=== PATIENT | female | born 1950 | race Hispanic/Latino ===

== ENCOUNTER 2018-06-13 23:48 | Emergency (ER) | payer OTHER ==
[2018-06-14 00:21] LABS: BASOPHILS % (AUTO) 0.8 % (0.0-5.0); EOSINOPHILS % (AUTO) 1.2 % (0.0-8.0); HEMATOCRIT 36.3 % (36-48); LYMPHOCYTES % (AUTO) 32.8 % (21.0-51.0); MEAN CORPUSCULAR HEMOGLOBIN 29.2 pg (27.0-33.0); MEAN CORPUSCULAR HGB CONC 34.5 g/dL (32.0-36.0); MEAN CORPUSCULAR VOLUME 84.8 fL (79-99); MONOCYTES % (AUTO) 6.6 % (3.0-13.0); NEUTROPHILS % (AUTO) 58.6 % (40.0-77.0); PLATELET COUNT (AUTO) 237 K/uL (130-400); RED BLOOD CELL COUNT(AUTO) 4.28 MIL/uL (4.00-5.50); RED CELL DISTRIBUTION WIDTH 14.2 % (11.0-15.5); WHITE BLOOD COUNT (AUTO) 9.2 K/uL (4.8-10.8)
[2018-06-14 00:32] LABS: APPEARANCE,URINE Clear (CLEAR); BILIRUBIN,URINE Negative (NEGATIVE); COLOR,URINE Yellow (YELLOW); GLUCOSE, URINE (UA) Negative (NEGATIVE); KETONES,URINE Negative (NEGATIVE); LEUKOCYTE ESTERASE ,URINE Trace (NEGATIVE); NITRATE,URINE Negative (NEGATIVE); OCCULT BLOOD,URINE Negative (NEGATIVE); PROTEIN,URINE Negative (NEGATIVE); UROBILINOGEN,URINE 0.2 mg/dL (0.2-1.0)
[2018-06-14 00:34] LABS: POTASSIUM 4.1 mmol/L (3.5-5.1)
[2018-06-14 00:39] LABS: ALBUMIN 3.8 g/dL (3.5-5.0); BILIRUBIN,TOTAL 0.9 mg/dL (0.2-1.0); TOTAL PROTEIN, SERUM 7.4 g/dL (6.0-8.3)
[2018-06-14 01:05] LABS: BACTERIA,URINE Rare /HPF (None Seen); RBC,URINE None Seen /HPF (0-1); WBC,URINE 0-1 /HPF (0-1)
[2018-06-14] MEDS ORDERED: MECLIZINE HCL 25 MG TABLET ONE (02:19)
== END 2018-06-14 05:12 | disposition home or self-care (01) ==
LOC: EDH 23:48
DX: E87.1 Hypo-osmolality and hyponatremia (principal); I10 Essential (primary) hypertension; H93.19 Tinnitus, unspecified ear
CPT/HCPCS: 36415; 70450; 71045; 80053; 81001; 82550; 84484; 85025; 93005; 96360; 96361

== ENCOUNTER 2018-08-09 23:56 | Emergency (ER) | payer OTHER ==
[2018-08-10 00:45] LABS: BASOPHILS % (AUTO) 0.6 % (0.0-5.0); EOSINOPHILS % (AUTO) 1.1 % (0.0-8.0); LYMPHOCYTES % (AUTO) 24.5 % (21.0-51.0); MEAN CORPUSCULAR HEMOGLOBIN 28.5 pg (27.0-33.0); MEAN CORPUSCULAR VOLUME 86.5 fL (79-99); MONOCYTES % (AUTO) 6.9 % (3.0-13.0); NEUTROPHILS % (AUTO) 66.9 % (40.0-77.0); NUCLEATED RED BLOOD CELLS 0.1 % (0.0-0.19); PLATELET COUNT (AUTO) 250 K/uL (130-400); RED CELL DISTRIBUTION WIDTH 13.6 % (11.0-15.5); WHITE BLOOD COUNT (AUTO) 5.7 K/uL (4.8-10.8)
[2018-08-10 00:47] LABS: CREATININE 0.8 mg/dL (0.5-1.5); POTASSIUM 4.2 mmol/L (3.5-5.1)
[2018-08-10] MEDS ORDERED: ONDANSETRON HCL 4 MG/2 ML VIAL ONE (00:48)
[2018-08-10] MEDS ORDERED: SODIUM CHLORIDE 0.9% 500ML 500 ML IV ONE (00:48)
[2018-08-10 00:50] LABS: INR 0.96 (0.85-1.15); PARTIAL THROMBOPLASTIN TIME 28.6 SEC (26.3-35.5); PROTHROMBIN TIME 10.1 SEC (9.6-11.6)
[2018-08-10 00:52] LABS: ALBUMIN 3.8 g/dL (3.5-5.0); BILIRUBIN,TOTAL 0.3 mg/dL (0.2-1.0); TOTAL PROTEIN, SERUM 7.7 g/dL (6.0-8.3)
[2018-08-10 00:54] LABS: APPEARANCE,URINE Clear (CLEAR); BILIRUBIN,URINE Negative (NEGATIVE); COLOR,URINE Yellow (YELLOW); GLUCOSE, URINE (UA) 250 mg/dL (NEGATIVE); KETONES,URINE Negative (NEGATIVE); LEUKOCYTE ESTERASE ,URINE Negative (NEGATIVE); NITRATE,URINE Negative (NEGATIVE); OCCULT BLOOD,URINE Negative (NEGATIVE); PH,URINE 7.5 (5.0-8.0); PROTEIN,URINE Negative (NEGATIVE); UROBILINOGEN,URINE 0.2 mg/dL (0.2-1.0)
[2018-08-10 01:02] LABS: BACTERIA,URINE Rare /HPF (None Seen); RBC,URINE 0-1 /HPF (0-1); WBC,URINE None Seen /HPF (0-1)
[2018-08-10 01:02] LABS: B-TYPE NATRIURETIC PEPTIDE 38 pg/mL (0-100)
== END 2018-08-10 03:42 | disposition home or self-care (01) ==
LOC: EDH 23:56
DX: J06.9 Acute upper respiratory infection, unspecified (principal); E86.9 Volume depletion, unspecified; I10 Essential (primary) hypertension; E11.40 Type 2 diabetes mellitus with diabetic neuropathy, unspecified; E78.5 Hyperlipidemia, unspecified; E07.9 Disorder of thyroid, unspecified; Z88.6 Allergy status to analgesic agent; Z90.710 Acquired absence of both cervix and uterus
CPT/HCPCS: 36415; 70450; 71045; 80053; 81001; 83880; 84484; 85025; 85610; 85730; 93005; 96361; 96374; 99284; J2405; J7040

== ENCOUNTER 2018-10-30 03:03 | Emergency (ER) | payer OTHER ==
[2018-10-30] MEDS ORDERED: ONDANSETRON HCL 4 MG/2 ML VIAL ONE (03:54)
[2018-10-30] MEDS ORDERED: MORPHINE SULFATE 4 MG/1ML SYG ONE (03:54)
[2018-10-30 03:59] LABS: BASOPHILS % (AUTO) 0.2 % (0.0-5.0); EOSINOPHILS % (AUTO) 0.4 % (0.0-8.0); HEMATOCRIT 40.4 % (36-48); LYMPHOCYTES % (AUTO) 14.2 % (21.0-51.0); MEAN CORPUSCULAR HEMOGLOBIN 28.5 pg (27.0-33.0); MEAN CORPUSCULAR HGB CONC 32.7 g/dL (32.0-36.0); MEAN CORPUSCULAR VOLUME 87.2 fL (79-99); MONOCYTES % (AUTO) 6.8 % (3.0-13.0); NEUTROPHILS % (AUTO) 78.4 % (40.0-77.0); NUCLEATED RED BLOOD CELLS 0.1 % (0.0-0.19); PLATELET COUNT (AUTO) 244 K/uL (130-400); RED BLOOD CELL COUNT(AUTO) 4.64 MIL/uL (4.00-5.50); RED CELL DISTRIBUTION WIDTH 13.5 % (11.0-15.5); WHITE BLOOD COUNT (AUTO) 4.2 K/uL (4.8-10.8)
[2018-10-30 04:13] LABS: CREATININE 0.7 mg/dL (0.5-1.5); POTASSIUM 4.7 mmol/L (3.5-5.1)
[2018-10-30] MEDS ORDERED: 0.9% SODIUM CHLORIDE 1000 ML IV BAG IV ONE (04:13)
[2018-10-30 04:17] LABS: BILIRUBIN,TOTAL 0.4 mg/dL (0.2-1.0); TOTAL PROTEIN, SERUM 7.9 g/dL (6.0-8.3)
[2018-10-30 04:17] LABS: APPEARANCE,URINE Clear (CLEAR); BILIRUBIN,URINE Negative (NEGATIVE); COLOR,URINE Yellow (YELLOW); GLUCOSE, URINE (UA) Negative (NEGATIVE); KETONES,URINE Negative (NEGATIVE); LEUKOCYTE ESTERASE ,URINE Moderate (NEGATIVE); NITRATE,URINE Negative (NEGATIVE); OCCULT BLOOD,URINE Negative (NEGATIVE); PROTEIN,URINE POS 1+ mg/dL (NEGATIVE); UROBILINOGEN,URINE 0.2 mg/dL (0.2-1.0)
[2018-10-30 04:24] LABS: BACTERIA,URINE Few /HPF (None Seen); MUCUS,URINE Moderate LPF (None Seen); RBC,URINE 0-1 /HPF (0-1); SQUAMOUS EPITHELIAL CELL,UR Moderate /HPF (0-2)
[2018-10-30] MEDS ORDERED: IOHEXOL-350 75 ML VIAL IV ONE (04:40)
[2018-10-30] MEDS ORDERED: DiphenhydrAMINE HCL 50 MG/ML VIAL ONE (05:09)
[2018-10-30] MEDS ORDERED: CEFTRIAXONE SODIUM 1 GM ONE (05:44)
[2018-10-30] MEDS ORDERED: FAMOTIDINE/PF 20 MG/2 ML VIAL IV ONE (05:46)
== END 2018-10-30 06:17 | disposition home or self-care (01) ==
LOC: EDH 03:03
DX: N39.0 Urinary tract infection, site not specified (principal); R11.2 Nausea with vomiting, unspecified; R19.7 Diarrhea, unspecified; T48.4X5A Adverse effect of expectorants, initial encounter; I10 Essential (primary) hypertension; E78.5 Hyperlipidemia, unspecified; E11.40 Type 2 diabetes mellitus with diabetic neuropathy, unspecified; E07.9 Disorder of thyroid, unspecified; Z90.710 Acquired absence of both cervix and uterus; Z88.6 Allergy status to analgesic agent; Y92.89 Other specified places as the place of occurrence of the external cause
CPT/HCPCS: 36415; 74177; 80053; 81001; 83690; 84484; 85025; 93005; 96361; 96374; 96375; 99284; J0696; J1200; J2270; J2405; J3490; J7030; Q9967

== ENCOUNTER 2019-03-19 15:35 | Emergency (ER) | payer OTHER ==
[2019-03-19] MEDS ORDERED: HYDROCODONE/ACETAMINOPHEN 5/325 MG TAB ONE (15:52)
== END 2019-03-19 17:40 | disposition home or self-care (01) ==
LOC: EDH 15:35
DX: M25.562 Pain in left knee (principal); E78.5 Hyperlipidemia, unspecified; I10 Essential (primary) hypertension; E11.40 Type 2 diabetes mellitus with diabetic neuropathy, unspecified; E07.9 Disorder of thyroid, unspecified; Z88.6 Allergy status to analgesic agent
CPT/HCPCS: 73562

== ENCOUNTER → 2020-05-03 | Outpatient (CLI) | payer OTHER | END | disposition home or self-care (01) | LOC: SHCH 09:13 | PROVIDERS: ATTEND Internal Medicine Cardiovascular Disease | DX: I87.2 Venous insufficiency (chronic) (peripheral) (principal); R07.9 Chest pain, unspecified | CPT/HCPCS: 93306; 93356; 93970 ==

== ENCOUNTER → 2020-05-05 | Outpatient (CLI) | payer OTHER ==
[~2020-05-05] MED LIST: REGADENOSON 0.4 MG/5 ML PF SYG IVP SCH
== END | disposition home or self-care (01) ==
LOC: SHCH 08:06
PROVIDERS: ATTEND Internal Medicine Cardiovascular Disease
DX: R07.9 Chest pain, unspecified (principal); R06.09 Other forms of dyspnea
CPT/HCPCS: 78452; 93017; 96374; A9500 ×2; J2785

== ENCOUNTER 2020-06-01 06:15 | Observation (INO) | payer OTHER ==
[2020-05-29 08:45] LABS: BASOPHILS % (AUTO) 0.6 % (0.0-5.0); EOSINOPHILS % (AUTO) 2.1 % (0.0-8.0); HEMATOCRIT 37.9 % (36-48); LYMPHOCYTES % (AUTO) 29.9 % (21.0-51.0); MEAN CORPUSCULAR HEMOGLOBIN 26.8 pg (27.0-33.0); MEAN CORPUSCULAR HGB CONC 31.7 g/dL (32.0-36.0); MEAN CORPUSCULAR VOLUME 84.6 fL (79-99); MONOCYTES % (AUTO) 9.2 % (3.0-13.0); NEUTROPHILS % (AUTO) 57.9 % (40.0-77.0); PLATELET COUNT (AUTO) 251 K/uL (130-400); RED BLOOD CELL COUNT(AUTO) 4.48 MIL/uL (4.00-5.50); RED CELL DISTRIBUTION WIDTH 14.1 % (11.0-15.5); WHITE BLOOD COUNT (AUTO) 6.2 K/uL (4.8-10.8)
[2020-05-29 08:47] LABS: APPEARANCE,URINE Clear (CLEAR); BILIRUBIN,URINE Negative (NEGATIVE); COLOR,URINE Yellow (YELLOW); GLUCOSE, URINE (UA) >=1000 mg/dL (NEGATIVE); KETONES,URINE Negative (NEGATIVE); LEUKOCYTE ESTERASE ,URINE Trace (NEGATIVE); NITRATE,URINE Negative (NEGATIVE); OCCULT BLOOD,URINE Negative (NEGATIVE); PROTEIN,URINE Negative (NEGATIVE); UROBILINOGEN,URINE 0.2 mg/dL (0.2-1.0)
[2020-05-29 08:53] LABS: CREATININE 0.8 mg/dL (0.5-1.5); POTASSIUM 4.6 mmol/L (3.5-5.1)
[2020-05-29 08:55] LABS: INR 0.92 (0.85-1.15); PARTIAL THROMBOPLASTIN TIME 27.4 SEC (26.3-35.5)
[2020-05-29 09:03] LABS: BACTERIA,URINE Rare /HPF (None Seen); RBC,URINE None Seen /HPF (0-1)
[2020-05-31 10:04] VITALS: BP 187/96
[~2020-06-01] VITALS: Ht 152.4 cm; Wt 71.7 kg
[2020-06-01] VITALS (24 sets, daily range): BP systolic 109–175; BP diastolic 52–122
[~2020-06-01 06:15] MED LIST changes: +AEC81 PO; +ATOR40TA71 PO; +B-12 PO; +EMPA25TA PO; +GABA-529 PO; +LEVO175T9 PO; +LOSA50TA64 PO; +MELO-108 PO; +MEMA5TAB42 PO; +METF-446 PO; +METO50TA18 PO; +OMEGA-3 PO; -REGADENOSON 0.4 MG/5 ML PF SYG IVP SCH; +VIT D PO
[2020-06-01] MEDS ORDERED: SODIUM CHLORIDE 0.9% 1000ML 1,000 ML IV ONE (06:22)
[2020-06-01] MEDS ORDERED: BIVALIRUDIN 250 MG/VIAL IV ONE (07:24)
[2020-06-01] MEDS ORDERED: LIDOCAINE HCL 2% 20ML ONE (07:24)
[2020-06-01] MEDS ORDERED: IOHEXOL 350 MG/ML 100ML INFUS..BTL IV ONE (07:24)
[2020-06-01] MEDS ORDERED: IOHEXOL-350 50ML VIAL IV ONE ×2 (07:24→08:05)
[2020-06-01] MEDS ORDERED: NITROGLYCERIN 2 MG/VIAL VIAL IV ONE (07:24)
[2020-06-01] MEDS ORDERED: IOHEXOL-350 75 ML VIAL IV ONE (07:24)
[2020-06-01] MEDS ORDERED: FENTANYL CITRATE PF 50 MCG/1 ML 2ML VIAL ONE (07:45)
[2020-06-01] MEDS ORDERED: MIDAZOLAM HCL 1 MG/ML 2ML VIAL ONE (07:45)
[2020-06-01] MEDS ORDERED: TICAGRELOR 90 MG TABLET ONE (08:57)
[2020-06-01] MEDS ORDERED: NITROGLYCERIN 0.4 MG SL TAB SL PRN (09:15)
[2020-06-01] MEDS ORDERED: DEXTROSE 50%-WATER 50 ML DISP.SYRIN IV PRN (09:15)
[2020-06-01] MEDS ORDERED: SODIUM CHLORIDE 0.9% 1000ML 1,000 ML IV SCH (09:15)
[2020-06-01] MEDS ORDERED: METOPROLOL TARTRATE 1 MG/ML 5ML VIAL IV PRN (09:15)
[2020-06-01] MEDS ORDERED: GLUCAGON 1MG KIT 1 MG ML IM PRN (09:15)
[2020-06-01] MEDS ORDERED: ATROPINE SULFATE 0.1 MG/ML 10 ML SYG IVP ONE (09:19)
[2020-06-01] MEDS: HYDRALAZINE HCL 20 MG/ML VIAL IV PRN ×2 (10:16→16:59)
[2020-06-01] MEDS: INSULIN HUMULIN R 100 UNIT/ML 3ML SQ SCH ×3 (11:30→20:15)
[2020-06-01] MEDS: TICAGRELOR 90 MG TABLET PO SCH (19:41)
[2020-06-01] MEDS: METOPROLOL TARTRATE 50 MG TAB PO SCH (19:41)
[2020-06-01] MEDS ORDERED: NON-FORMULARY MEDICATION 1 EACH (Empagliflozin (Jardiance) 25 MG) PO SCH (21:00)
[2020-06-02 04:13] VITALS: BP 142/77
[2020-06-02] MEDS: INSULIN HUMULIN R 100 UNIT/ML 3ML SQ SCH (05:31)
[2020-06-02] MEDS ORDERED: LEVOTHYROXINE 88 MCG TABLET PO SCH (06:30)
[2020-06-02] MEDS: METOPROLOL TARTRATE 50 MG TAB PO SCH (08:23)
[2020-06-02] MEDS: TICAGRELOR 90 MG TABLET PO SCH (08:23)
[2020-06-02 08:50] VITALS: BP 126/70
[2020-06-02] MEDS ORDERED: MELOXICAM 7.5 MG TABLET PO SCH (09:00)
[2020-06-02] MEDS ORDERED: NON-FORMULARY MEDICATION 1 EACH (Levothyroxine Sodium 175 MCG) PO SCH (09:00)
[2020-06-02] MEDS ORDERED: ATORVASTATIN CALCIUM 40 MG TABLET PO SCH (09:00)
[2020-06-02] MEDS ORDERED: LOSARTAN 50 MG TABLET PO SCH (09:00)
[2020-06-02] MEDS ORDERED: MEMANTINE HCL 5 MG TABLET PO SCH (09:00)
[2020-06-02] MEDS ORDERED: METFORMIN HCL 500 MG TABLET PO SCH (09:00)
[2020-06-02] MEDS ORDERED: CYANOCOBALAMIN (VITAMIN B-12) 1,000 MCG TABLET PO SCH (09:00)
[2020-06-02] MEDS ORDERED: B12 PO SCH (09:00)
[2020-06-02] MEDS ORDERED: GABAPENTIN 100 MG CAPSULE PO SCH (09:00)
[2020-06-02] MEDS ORDERED: ASPIRIN 81 MG EC TAB PO SCH (09:00)
[2020-06-02] MEDS ORDERED: NON-FORMULARY MEDICATION 1 EACH (Metformin HCl 1,000 MG) PO SCH (09:00)
[2020-06-02] MEDS ORDERED: NON-FORMULARY MEDICATION 1 EACH (Meloxicam 15 MG) PO SCH (09:00)
[2020-06-23] MEDS ORDERED: TICA90TA PO (17:15)
[2020-06-23] MEDS ORDERED: TRAM50TA4 PO (17:15)
== END 2020-06-02 11:00 | disposition home or self-care (01) ==
LOC: DAH 06:15 → INTOOBSV 06:16 → DAH 06:16 → OBSVTOIN 06:16 → DAHIP 06:16 → 4CH 14:04
PROVIDERS: ADMIT Internal Medicine Cardiovascular Disease; ATTEND Internal Medicine Cardiovascular Disease
DX: I25.111 Atherosclerotic heart disease of native coronary artery with angina pectoris with documented spasm (principal); I11.0 Hypertensive heart disease with heart failure; I50.32 Chronic diastolic (congestive) heart failure; E11.51 Type 2 diabetes mellitus with diabetic peripheral angiopathy without gangrene; E78.5 Hyperlipidemia, unspecified; E03.9 Hypothyroidism, unspecified; I87.2 Venous insufficiency (chronic) (peripheral); Z90.710 Acquired absence of both cervix and uterus; Z82.79 Family history of other congenital malformations, deformations and chromosomal abnormalities; Z79.84 Long term (current) use of oral hypoglycemic drugs; Z95.5 Presence of coronary angioplasty implant and graft; Z79.82 Long term (current) use of aspirin; Z79.01 Long term (current) use of anticoagulants; Z79.890 Hormone replacement therapy; Z79.899 Other long term (current) drug therapy
CPT/HCPCS: 36415; 71045; 80048; 81001; 82948 ×5; 85025; 85610; 85730; 93005; 93458; 96361 ×2; 96374; A4215; A4216; A4221; A4222; A4223 ×3; A4606; A4615; A4663; A6260; A6402; C1725; C1769 ×2; C1874; C1887 ×2; C1894 ×2; C9600; G0378 ×19; J0360; J0583; J1644; J2250; J3010; J3490 ×2; J7030; Q9965; Q9967 ×3; 99156; 99157; J0461

== ENCOUNTER 2020-06-26 06:00 | Observation (INO) | payer OTHER ==
[2020-06-23 14:39] LABS: BASOPHILS % (AUTO) 0.5 % (0.0-5.0); EOSINOPHILS % (AUTO) 1.3 % (0.0-8.0); HEMATOCRIT 36.7 % (36-48); MEAN CORPUSCULAR HEMOGLOBIN 27.5 pg (27.0-33.0); MEAN CORPUSCULAR HGB CONC 32.4 g/dL (32.0-36.0); MEAN CORPUSCULAR VOLUME 84.8 fL (79-99); MONOCYTES % (AUTO) 8.5 % (3.0-13.0); NEUTROPHILS % (AUTO) 67.4 % (40.0-77.0); PLATELET COUNT (AUTO) 253 K/uL (130-400); RED BLOOD CELL COUNT(AUTO) 4.33 MIL/uL (4.00-5.50); RED CELL DISTRIBUTION WIDTH 14.1 % (11.0-15.5); WHITE BLOOD COUNT (AUTO) 6.2 K/uL (4.8-10.8)
[2020-06-23 14:49] LABS: CREATININE 0.7 mg/dL (0.5-1.5); POTASSIUM 4.3 mmol/L (3.5-5.1)
[2020-06-23 14:53] LABS: INR 0.93 (0.85-1.15); PARTIAL THROMBOPLASTIN TIME 26.4 SEC (26.3-35.5); PROTHROMBIN TIME 10.1 SEC (9.6-11.6)
[2020-06-23 17:09] VITALS: BP 164/73
[2020-06-26] VITALS (10 sets, daily range): BP systolic 129–169; BP diastolic 55–78
[~2020-06-26] VITALS: Ht 152.4 cm; Wt 69.9 kg
[~2020-06-26 06:00] MED LIST changes: -B-12 PO; -MELO-108 PO; -OMEGA-3 PO; +SODIUM CHLORIDE 0.9% 500ML 500 ML IV SCH; +TICA90TA PO; +TRAM50TA4 PO; -VIT D PO
[2020-06-26] MEDS ORDERED: SODIUM CHLORIDE 0.9% 1000ML 1,000 ML IV ONE (09:21)
[2020-06-26] MEDS ORDERED: NITROGLYCERIN 2 MG/VIAL VIAL IV ONE (09:25)
[2020-06-26] MEDS ORDERED: IOHEXOL 350 MG/ML 100ML INFUS..BTL IV ONE (09:26)
[2020-06-26] MEDS ORDERED: LIDOCAINE HCL 2% 20ML ONE (09:26)
[2020-06-26] MEDS ORDERED: HEPARIN SODIUM 1000UNIT/ML 10ML VIAL ONE (09:30)
[2020-06-26] MEDS ORDERED: BIVALIRUDIN 250 MG/VIAL IV ONE (09:41)
[2020-06-26] MEDS ORDERED: MIDAZOLAM HCL 1 MG/ML 2ML VIAL ONE (09:52)
[2020-06-26] MEDS ORDERED: FENTANYL CITRATE PF 50 MCG/1 ML 2ML VIAL ONE (09:52)
[2020-06-26] MEDS ORDERED: GLUCAGON 1MG KIT 1 MG ML IM PRN (10:45)
[2020-06-26] MEDS ORDERED: SODIUM CHLORIDE 0.9% 1000ML 1,000 ML IV SCH (10:45)
[2020-06-26] MEDS ORDERED: NITROGLYCERIN 0.4 MG SL TAB SL PRN (10:45)
[2020-06-26] MEDS ORDERED: DEXTROSE 50%-WATER 50 ML DISP.SYRIN IV PRN (10:45)
[2020-06-26] MEDS ORDERED: METOPROLOL TARTRATE 1 MG/ML 5ML VIAL IV PRN (10:45)
[2020-06-26] MEDS ORDERED: HYDRALAZINE HCL 20 MG/ML VIAL IV PRN (10:45)
--- NOTE | 2020-06-26 11:15 | NUR ---
ARRIVAL TO FLOOR PT IS AAOX3 DENIES CP DENIES SOB DENIES NV NO COMPLAINTS RESTING IN BED. BREATHING PATTERN IS EVEN AND UNLABORED. NOTED RIGHT FEMORAL SHEATH SUTURED IN PLACE. RIGHT GROIN WNLS. BEDREST IN PROGRESS. TELE PACK APPLIED TO PATIENT.
[2020-06-26] MEDS: INSULIN HUMULIN R 100 UNIT/ML 3ML SQ SCH ×3 (11:30→20:27)
--- NOTE | 2020-06-26 12:30 | NUR ---
LINE REMOVAL SHEATH REMOVED, MANUAL PRESSURE HELD [id number]. DRESSING APPLIED. BEDREST X3 HOURS IN PROGRESS, PATIENT AND FAMILY VERBALIZE UNDERSTANDING. CALL LIGHT WITHIN REACH.
--- NOTE | 2020-06-26 15:30 | NUR ---
RIGHT GROIN WNL HOB UP TO 30 DEGREES, SEATED POSITION. CALL LIGHT WITHIN REACH.
--- NOTE | 2020-06-26 17:30 | NUR ---
STATUS RIGHT GROIN REMAINS WNL.
[2020-06-26] MEDS ORDERED: TICAGRELOR 90 MG TABLET ONE (18:48)
[2020-06-26] MEDS: TICAGRELOR 90 MG TABLET PO SCH (19:53)
[2020-06-27 00:07] VITALS: BP 147/64
[2020-06-27 04:22] VITALS: BP 140/72
[2020-06-27] MEDS: INSULIN HUMULIN R 100 UNIT/ML 3ML SQ SCH (05:31)
[2020-06-27 05:56] LABS: HEMATOCRIT 33.9 % (36-48); MEAN CORPUSCULAR HGB CONC 32.2 g/dL (32.0-36.0); MEAN CORPUSCULAR VOLUME 83.9 fL (79-99); RED BLOOD CELL COUNT(AUTO) 4.04 MIL/uL (4.00-5.50); RED CELL DISTRIBUTION WIDTH 13.8 % (11.0-15.5); WHITE BLOOD COUNT (AUTO) 4.7 K/uL (4.8-10.8)
[2020-06-27 06:10] LABS: CREATININE 0.5 mg/dL (0.5-1.5); POTASSIUM 3.9 mmol/L (3.5-5.1)
[2020-06-27 07:30] VITALS: BP 150/74
[2020-06-27] MEDS: TICAGRELOR 90 MG TABLET PO SCH (09:59)
--- NOTE | 2020-06-27 10:16 | NUR ---
DISCHARGE INSTRUCTION PROVIDED TO PATIENT ALONG WITH LIST OF HOME MEDS ,RISKS TO WATCH OUT FOR , DAUGHTER AT BEDSIDE .. FOLLOW UP APPT SET UP ..
--- NOTE | 2020-06-27 10:19 | NUR ---
PER DAUGHTER ALREADY TOOK MORNING HOME MEDICATION
--- NOTE | 2020-06-27 11:02 | NUR ---
1005 patient signed IM Letter(daughter at bedside), I faxed IM Letter to [phone] and placed in chart under consent tab. Addendum: 06/27/20 at 1105 by JAMES AMOS CM Patient signed GREEN Letter.
--- NOTE | 2020-06-27 13:14 | NUR ---
MED RECORD REVIEWED, NO TRIGGERS, NO CONCERNS EXPRESSED BY PATIENT, DETAILED CM ASSESSMENT DEFERRED Addendum: 06/27/20 at 1315 by KARRIE REBOLLAR RN CM Amended: Links added.
== END 2020-06-27 09:50 | disposition home or self-care (01) ==
LOC: DAH 06:00 → DAHIP 06:01 → DAH 06:01 → 4CH 11:37
PROVIDERS: ADMIT Internal Medicine Cardiovascular Disease; ATTEND Internal Medicine Cardiovascular Disease
DX: I25.119 Atherosclerotic heart disease of native coronary artery with unspecified angina pectoris (principal); E11.51 Type 2 diabetes mellitus with diabetic peripheral angiopathy without gangrene; E78.5 Hyperlipidemia, unspecified; I10 Essential (primary) hypertension; Z87.890 Personal history of sex reassignment
CPT/HCPCS: 36415 ×2; 71045; 80048 ×2; 82948 ×4; 85025; 85027; 85610; 85730; 93005; 96360; 96361; A4215; A4216; A4221; A4222; A4223 ×3; A4606; A4663; C1769; C1874; C1887 ×3; C1894 ×2; C9600; G0378 ×23; J0583; J1644; J2250; J3010; J3490 ×2; J7030; Q9965; Q9967; 93454; 99152; 99156; 99157

== ENCOUNTER → 2020-11-21 | Outpatient (CLI) | payer OTHER ==
[~2020-11-21] MED LIST changes: -SODIUM CHLORIDE 0.9% 500ML 500 ML IV SCH
== END | disposition home or self-care (01) ==
LOC: SHCH 13:41
PROVIDERS: ATTEND Internal Medicine Cardiovascular Disease
DX: I87.2 Venous insufficiency (chronic) (peripheral) (principal)
CPT/HCPCS: 93970

== ENCOUNTER 2021-02-12 17:28 | Emergency (ER) | payer OTHER ==
[~2021-02-12] VITALS: Ht 152.4 cm; Wt 88.5 kg
[2021-02-12 19:53] VITALS: BP 111/58
[2021-02-12 21:25] LABS: BILIRUBIN,URINE Negative (NEGATIVE); COLOR,URINE Yellow (YELLOW); GLUCOSE, URINE (UA) >=1000 mg/dL (NEGATIVE); KETONES,URINE Negative (NEGATIVE); LEUKOCYTE ESTERASE ,URINE Negative (NEGATIVE); NITRATE,URINE Negative (NEGATIVE); OCCULT BLOOD,URINE Negative (NEGATIVE); PROTEIN,URINE Negative (NEGATIVE); UROBILINOGEN,URINE 0.2 mg/dL (0.2-1.0)
[2021-02-12 21:25] LABS: BASOPHILS % (AUTO) 0.4 % (0.0-5.0); EOSINOPHILS % (AUTO) 1.1 % (0.0-8.0); HEMATOCRIT 33.9 % (36-48); LYMPHOCYTES % (AUTO) 18.8 % (21.0-51.0); MEAN CORPUSCULAR HEMOGLOBIN 24.8 pg (27.0-33.0); MEAN CORPUSCULAR HGB CONC 30.4 g/dL (32.0-36.0); MEAN CORPUSCULAR VOLUME 81.5 fL (79-99); MONOCYTES % (AUTO) 8.8 % (3.0-13.0); NEUTROPHILS % (AUTO) 70.2 % (40.0-77.0); PLATELET COUNT (AUTO) 324 K/uL (130-400); RED BLOOD CELL COUNT(AUTO) 4.16 MIL/uL (4.00-5.50); WHITE BLOOD COUNT (AUTO) 11.3 K/uL (4.8-10.8)
[2021-02-12] MEDS ORDERED: PANTOPRAZOLE 40 MG/VIAL IVP ONE (21:30)
[2021-02-12] MEDS ORDERED: ONDANSETRON 4MG INJ IVP ONE (21:30)
[2021-02-12] MEDS ORDERED: ACETAMINOPHEN 325 MG TAB PO ONE (21:30)
[2021-02-12] MEDS ORDERED: 0.9%NACL 1000ML 1,000 ML IV ONE (21:30)
[2021-02-12] MEDS ORDERED: MORPHINE 4 MG SYG IVP ONE (21:30)
[2021-02-12] MEDS ORDERED: LIDOCAINE HCL 2% VISCOUS 15 ML UDCUP PO ONE (21:30)
[2021-02-12 21:38] LABS: INR 0.94 (0.85-1.15); PROTHROMBIN TIME 10.3 SEC (9.6-11.6)
[2021-02-12 21:42] LABS: APPEARANCE,URINE CLEAR (CLEAR)
[2021-02-12 21:46] LABS: BACTERIA,URINE Rare /HPF (None Seen); RBC,URINE 0-1 /HPF (0-1); SQUAMOUS EPITHELIAL CELL,UR Rare /HPF (0-2); WBC,URINE 0-1 /HPF (0-1)
[2021-02-12 21:48] LABS: CREATININE 0.9 mg/dL (0.5-1.5); POTASSIUM 4.5 mmol/L (3.5-5.1)
[2021-02-12 21:52] LABS: ALBUMIN 3.4 g/dL (3.5-5.0); BILIRUBIN,TOTAL 0.3 mg/dL (0.2-1.0); TOTAL PROTEIN, SERUM 7.3 g/dL (6.0-8.3)
[2021-02-12 22:01] LABS: CREATINE KINASE, TOTAL 96 U/L (21-232); MYOGLOBIN 25 ng/mL (10-92); TROPONIN I < 0.04 ng/mL (0.00-0.06)
[2021-02-12] MEDS ORDERED: IOHEXOL-350 75 ML VIAL IV ONE (22:19)
[2021-02-12] MEDS ORDERED: ACET1TAB25 PO (23:49)
[2021-02-12] MEDS ORDERED: ONDA4TAB4 PO (23:49)
[2021-02-12] MEDS ORDERED: DICY20TA2 PO (23:49)
[2021-02-12] MEDS ORDERED: FAMO-136 PO (23:49)
[2021-02-13 00:25] VITALS: BP 130/63
== END 2021-02-13 00:36 | disposition home or self-care (01) ==
LOC: EDH 17:28
DX: K29.00 Acute gastritis without bleeding (principal); K80.70 Calculus of gallbladder and bile duct without cholecystitis without obstruction; I10 Essential (primary) hypertension; E78.5 Hyperlipidemia, unspecified; I25.10 Atherosclerotic heart disease of native coronary artery without angina pectoris; E78.00 Pure hypercholesterolemia, unspecified; E10.9 Type 1 diabetes mellitus without complications; E03.9 Hypothyroidism, unspecified; Z95.5 Presence of coronary angioplasty implant and graft; Z90.710 Acquired absence of both cervix and uterus; Z88.6 Allergy status to analgesic agent; Z79.899 Other long term (current) drug therapy; Z79.82 Long term (current) use of aspirin; Z79.84 Long term (current) use of oral hypoglycemic drugs
CPT/HCPCS: 36415; 71045; 74177; 76705; 80053; 81001; 82550 ×2; 83690; 83874; 83880; 84484; 85025; 85610; 87088; 93005; 96361; 96374; 96375; 99285; C9113; J2405; J7030; Q9967

== ENCOUNTER 2021-05-14 08:10 | Observation (INO) | payer OTHER ==
[2021-05-10 11:12] LABS: APPEARANCE,URINE Clear (CLEAR); BILIRUBIN,URINE Negative (NEGATIVE); COLOR,URINE Yellow (YELLOW); GLUCOSE, URINE (UA) >=1000 mg/dL (NEGATIVE); KETONES,URINE Negative (NEGATIVE); LEUKOCYTE ESTERASE ,URINE Negative (NEGATIVE); NITRATE,URINE Negative (NEGATIVE); OCCULT BLOOD,URINE Negative (NEGATIVE); PROTEIN,URINE Negative (NEGATIVE); UROBILINOGEN,URINE 0.2 mg/dL (0.2-1.0)
[2021-05-10 11:28] LABS: BACTERIA,URINE Rare /HPF (None Seen); RBC,URINE 0-1 /HPF (0-1); SQUAMOUS EPITHELIAL CELL,UR Rare /HPF (0-2); WBC,URINE 0-1 /HPF (0-1)
[2021-05-11 10:16] VITALS: BP 131/63
[2021-05-14] VITALS (22 sets, daily range): BP systolic 119–213; BP diastolic 47–106
[~2021-05-14] VITALS: Ht 152.4 cm; Wt 72.5 kg
[2021-05-14] MEDS: CEFAZOLIN SODIUM 1 GM VIAL IVP SCH ×3 (06:00→20:42)
[~2021-05-14 08:10] MED LIST changes: -TRAM50TA4 PO
[2021-05-14] MEDS ORDERED: 0.9%NACL 1000ML 1,000 ML IV ONE (08:56)
[2021-05-14] MEDS ORDERED: CEFAZOLIN SODIUM 1 GM VIAL ONE ×2 (12:35→19:30)
[2021-05-14] MEDS ORDERED: TRANEXAMIC ACID 1000MG/10ML ONE ×2 (12:36→16:46)
[2021-05-14] MEDS ORDERED: LIDOCAINE PF 100MG/5ML (2%) SYRINGE 5ML ONE (13:49)
[2021-05-14] MEDS ORDERED: SUCCINYLCHOLINE CHLORIDE 20 MG/ML 10 ML VIAL ONE (13:49)
[2021-05-14] MEDS ORDERED: PROPOFOL 10 MG/ML 20ML VIAL IV ONE ×2 (13:50→13:53)
[2021-05-14] MEDS ORDERED: MIDAZOLAM HCL 1 MG/ML 2ML VIAL ONE (13:50)
[2021-05-14] MEDS ORDERED: ROCURONIUM 10MG/1ML SYR 10 MG/ML ML ONE (13:59)
[2021-05-14] MEDS ORDERED: EPHEDRINE SULFATE 50 MG/ML AMPULE ONE (14:15)
[2021-05-14] MEDS ORDERED: FENTANYL CITRATE PF 50 MCG/1 ML 2ML VIAL ONE (14:47)
[2021-05-14] MEDS ORDERED: NEOSTIGMINE 5MG/5ML SYR IV ONE (15:35)
[2021-05-14] MEDS ORDERED: GLYCOPYRROLATE 1 MG/5 ML SYRINGE ONE (15:35)
[2021-05-14] MEDS ORDERED: ONDANSETRON 4MG INJ ONE (15:35)
[2021-05-14] MEDS: FAMOTIDINE 20MG TAB PO SCH (15:56)
[2021-05-14] MEDS ORDERED: CALCIUM CARB 500MG PO PRN (16:00)
[2021-05-14] MEDS ORDERED: TEMAZEPAM 15 MG CAPSULE PO PRN (16:00)
[2021-05-14] MEDS ORDERED: POTASSIUM CHLORIDE 20MEQ/100ML 100 ML IV PRN (16:00)
[2021-05-14] MEDS ORDERED: KCL 20 MEQ ERTAB PO PRN (16:00)
[2021-05-14] MEDS ORDERED: TRAMADOL HCL 50 MG TABLET PO PRN (16:00)
[2021-05-14] MEDS ORDERED: POTASSIUM CHLORIDE 10% ELIXIR 20 MEQ/15 ML UDCUP PO PRN (16:00)
[2021-05-14] MEDS: ACETAMINOPHEN 500 MG TABLET PO SCH ×2 (16:00→23:13)
[2021-05-14] MEDS ORDERED: LIDOCAINE HCL-MPF 1% 2ML VIAL IV PRN (16:00)
[2021-05-14] MEDS ORDERED: 0.9%NACL 1000ML 1,000 ML IV SCH (16:00)
[2021-05-14] MEDS ORDERED: DiphenhydrAMINE HCL 50 MG/ML VIAL IVP PRN (16:00)
[2021-05-14] MEDS ORDERED: KETOROLAC 15MG/ML VIAL (15MG/ML) IV PRN (16:00)
[2021-05-14] MEDS: INSULIN HUMULIN R 100 UNIT/ML 3ML SQ SCH ×2 (16:30→20:47)
[2021-05-14] MEDS ORDERED: MEPERIDINE-PF 25 MG/ML SYG ONE ×3 (16:46→17:29)
[2021-05-14] MEDS ORDERED: HYDRALAZINE 20MG/ML VIAL ONE (16:58)
[2021-05-14] MEDS: OXYCODONE HCL 5 MG TAB PO PRN (19:08)
[2021-05-14] MEDS: METFORMIN HCL 500 MG TABLET PO SCH (19:11)
[2021-05-14] MEDS: ONDANSETRON 4MG INJ IVP PRN (19:11)
[2021-05-14] MEDS ORDERED: MEMANTINE HCL 5 MG TABLET ONE (19:29)
[2021-05-14] MEDS ORDERED: HYDROMORPHONE 2 MG VIAL (2MG/ML) IVP PRN (19:30)
[2021-05-14] MEDS ORDERED: TICAGRELOR 90 MG TABLET ONE (19:30)
[2021-05-14] MEDS ORDERED: GABAPENTIN 100 MG CAPSULE ONE (19:30)
[2021-05-14] MEDS ORDERED: CELECOXIB 200 MG CAP ONE (19:30)
[2021-05-14] MEDS ORDERED: ATORVASTATIN 40 MG TABLET ONE (19:30)
[2021-05-14] MEDS ORDERED: METOPROLOL TARTRATE 50 MG TAB ONE (19:31)
[2021-05-14] MEDS ORDERED: LOSARTAN 50 MG TABLET ONE (19:31)
[2021-05-14] MEDS ORDERED: ASPIRIN 81 MG EC TAB ONE (19:31)
[2021-05-14] MEDS: MEMANTINE HCL 5 MG TABLET PO SCH (20:42)
[2021-05-14] MEDS: GABAPENTIN 100 MG CAPSULE PO SCH (20:43)
[2021-05-14] MEDS: ATORVASTATIN 40 MG TABLET PO SCH (20:43)
[2021-05-14] MEDS: CELECOXIB 200 MG CAP PO SCH (20:44)
[2021-05-14] MEDS: TICAGRELOR 90 MG TABLET PO SCH (20:44)
[2021-05-14] MEDS: ASPIRIN 81 MG EC TAB PO SCH (20:44)
[2021-05-14] MEDS: METOPROLOL TARTRATE 50 MG TAB PO SCH (20:48)
[2021-05-14] MEDS: LOSARTAN 50 MG TABLET PO SCH (20:48)
[2021-05-15] MEDS ORDERED: KETOROLAC 15MG/ML VIAL (15MG/ML) IV PRN
[2021-05-15 00:08] VITALS: BP 128/59
[2021-05-15] MEDS: OXYCODONE HCL 5 MG TAB PO PRN ×4 (02:22→22:02)
[2021-05-15] MEDS ORDERED: LEVOTHYROXINE 75 MCG TABLET ONE (03:55)
[2021-05-15] MEDS ORDERED: LEVOTHYROXINE 100 MCG TABLET ONE (03:55)
[2021-05-15 04:08] VITALS: BP 108/53
[2021-05-15 04:31] LABS: HEMATOCRIT 29.2 % (36-48); MEAN CORPUSCULAR HEMOGLOBIN 22.7 pg (27.0-33.0); MEAN CORPUSCULAR HGB CONC 29.8 g/dL (32.0-36.0); PLATELET COUNT (AUTO) 298 K/uL (130-400); RED BLOOD CELL COUNT(AUTO) 3.84 MIL/uL (4.00-5.50); RED CELL DISTRIBUTION WIDTH 16.8 % (11.0-15.5); WHITE BLOOD COUNT (AUTO) 9.9 K/uL (4.8-10.8)
[2021-05-15 04:57] LABS: CREATININE 0.8 mg/dL (0.5-1.5); POTASSIUM 4.1 mmol/L (3.5-5.1)
[2021-05-15] MEDS: FERROUS FUMARATE 324 MG TABLET PO PRN (05:33)
[2021-05-15] MEDS: LEVOTHYROXINE 75 MCG TABLET PO SCH (05:33)
[2021-05-15] MEDS: LEVOTHYROXINE 100 MCG TABLET PO SCH (05:33)
[2021-05-15] MEDS: CEFAZOLIN SODIUM 1 GM VIAL IVP SCH (05:33)
[2021-05-15] MEDS: INSULIN HUMULIN R 100 UNIT/ML 3ML SQ SCH ×4 (05:34→21:00)
[2021-05-15 08:00] VITALS: BP 111/60
[2021-05-15] MEDS: METFORMIN HCL 500 MG TABLET PO SCH ×2 (08:03→17:30)
[2021-05-15] MEDS: CELECOXIB 200 MG CAP PO SCH ×2 (08:03→20:11)
[2021-05-15] MEDS: TICAGRELOR 90 MG TABLET PO SCH ×2 (08:03→20:11)
[2021-05-15] MEDS: FAMOTIDINE 20MG TAB PO SCH (08:04)
[2021-05-15] MEDS: POLYETHYLENE GLYCOL 3350 17 GM POWD.PACK PO SCH (08:04)
[2021-05-15] MEDS: ASPIRIN 81 MG EC TAB PO SCH ×2 (08:04→20:11)
[2021-05-15] MEDS: EMPAGLIFLOZIN 25 MG PO SCH (08:05)
[2021-05-15] MEDS: ACETAMINOPHEN 500 MG TABLET PO SCH ×3 (08:09→23:13)
[2021-05-15] MEDS: METOPROLOL TARTRATE 50 MG TAB PO SCH ×2 (11:40→20:12)
[2021-05-15 12:00] VITALS: BP 134/64
[2021-05-15 16:00] VITALS: BP 134/61
[2021-05-15 20:08] VITALS: BP 147/65
[2021-05-15] MEDS: GABAPENTIN 100 MG CAPSULE PO SCH (20:12)
[2021-05-15] MEDS: LOSARTAN 50 MG TABLET PO SCH (20:12)
[2021-05-15] MEDS: ATORVASTATIN 40 MG TABLET PO SCH (20:12)
[2021-05-15] MEDS: MEMANTINE HCL 5 MG TABLET PO SCH (20:12)
[2021-05-16 00:12] VITALS: BP 137/68
[2021-05-16 04:12] VITALS: BP 142/68
[2021-05-16] MEDS: INSULIN HUMULIN R 100 UNIT/ML 3ML SQ SCH ×2 (05:32→11:30)
[2021-05-16] MEDS: LEVOTHYROXINE 75 MCG TABLET PO SCH (05:39)
[2021-05-16] MEDS: LEVOTHYROXINE 100 MCG TABLET PO SCH (05:39)
[2021-05-16 07:54] VITALS: BP 148/61
[2021-05-16] MEDS: ACETAMINOPHEN 500 MG TABLET PO SCH ×2 (08:00→16:40)
[2021-05-16] MEDS: EMPAGLIFLOZIN 25 MG PO SCH (09:00)
[2021-05-16] MEDS: FAMOTIDINE 20MG TAB PO SCH (09:14)
[2021-05-16] MEDS: TICAGRELOR 90 MG TABLET PO SCH (09:14)
[2021-05-16] MEDS: CELECOXIB 200 MG CAP PO SCH (09:14)
[2021-05-16] MEDS: ASPIRIN 81 MG EC TAB PO SCH (09:14)
[2021-05-16] MEDS: METOPROLOL TARTRATE 50 MG TAB PO SCH (09:15)
[2021-05-16] MEDS: METFORMIN HCL 500 MG TABLET PO SCH ×2 (09:15→16:40)
[2021-05-16] MEDS: ONDANSETRON 4MG INJ IVP PRN (10:39)
[2021-05-16] MEDS: FERROUS FUMARATE 324 MG TABLET PO PRN (10:47)
[2021-05-16] MEDS: POLYETHYLENE GLYCOL 3350 17 GM POWD.PACK PO SCH (10:47)
[2021-05-16 11:21] VITALS: BP 127/75
[2021-05-16 16:18] VITALS: BP 147/55
[2021-05-16] MEDS: OXYCODONE HCL 5 MG TAB PO PRN (16:40)
[2021-05-16] MEDS ORDERED: AEC81 PO (16:41)
[2021-05-16] MEDS ORDERED: HYDR-4060 PO (16:41)
[2021-05-17] MEDS ORDERED: BISACODYL 10 MG SUPP.RECT RC PRN (16:00)
== END 2021-05-16 23:45 | disposition home or self-care (01) ==
LOC: DAH 08:10 → DAHIP 08:11 → DAH 08:11 → 4AH 17:41
PROVIDERS: ADMIT Orthopaedic Surgery; ATTEND Orthopaedic Surgery
DX: M17.12 Unilateral primary osteoarthritis, left knee (principal); Z20.822 Contact with and (suspected) exposure to COVID-19; M23.8X2 Other internal derangements of left knee; I10 Essential (primary) hypertension; E11.9 Type 2 diabetes mellitus without complications; E78.5 Hyperlipidemia, unspecified; E03.9 Hypothyroidism, unspecified; D62 Acute posthemorrhagic anemia; I25.10 Atherosclerotic heart disease of native coronary artery without angina pectoris; Z90.710 Acquired absence of both cervix and uterus; Z95.5 Presence of coronary angioplasty implant and graft; Z79.899 Other long term (current) drug therapy
CPT/HCPCS: 27447; 36415 ×2; 80048; 81001; 82948 ×11; 85027; 86850; 86900; 86901; 87088; 87635; 87641; 88305; 88311; 96361; 96374; 96375; 96376 ×2; 97039 ×4; 97116 ×4; 97161; 97530 ×4; A4215; A4221; A4222; A4223 ×2; A4649 ×4; A4663; A4930 ×3; A5120; A9272; C1776; C9803; G0378 ×64; J0330; J0360; J0690 ×4; J1885; J2001; J2175 ×3; J2250; J2405 ×3; J2704 ×2; J2710; J3010; J3490 ×4; J7030 ×2

== ENCOUNTER 2022-01-22 19:42 | Emergency (ER) | payer OTHER ==
[~2022-01-22] VITALS: Ht 154.9 cm; Wt 70.8 kg
[~2022-01-22 19:42] MED LIST changes: +HYDR-4060 PO
[2022-01-22 20:34] LABS: MEAN CORPUSCULAR HGB CONC 33.2 g/dL (32.0-36.0); MEAN CORPUSCULAR VOLUME 84.4 fL (79-99); PLATELET COUNT (AUTO) 259 K/uL (130-400); RED CELL DISTRIBUTION WIDTH 14.7 % (11.0-15.5); WHITE BLOOD COUNT (AUTO) 7.3 K/uL (4.8-10.8)
[2022-01-22 20:45] LABS: POTASSIUM 4.7 mmol/L (3.5-5.1)
[2022-01-22 20:47] LABS: INR 0.94 (0.85-1.15); PROTHROMBIN TIME 10.3 SEC (9.6-11.6)
[2022-01-22 20:48] LABS: PARTIAL THROMBOPLASTIN TIME 25.6 SEC (26.3-35.5)
[2022-01-22 20:49] LABS: ALBUMIN 3.5 g/dL (3.5-5.0); BILIRUBIN,TOTAL 0.4 mg/dL (0.2-1.0); TOTAL PROTEIN, SERUM 7.2 g/dL (6.0-8.3)
[2022-01-22 21:07] LABS: BASOPHILS % (AUTO) 0.7 % (0.0-5.0); LYMPHOCYTES % (AUTO) 31.2 % (21.0-51.0); MONOCYTES % (AUTO) 8.8 % (3.0-13.0)
[2022-01-22] MEDS ORDERED: HYDROCODONE/ACETAMINOPHEN 10/325 MG TAB PO ONE (22:00)
[2022-01-22 22:10] VITALS: BP 174/83
== END 2022-01-22 22:31 | disposition home or self-care (01) ==
LOC: EDH 19:42
DX: M25.462 Effusion, left knee (principal); M25.562 Pain in left knee; E11.9 Type 2 diabetes mellitus without complications; E78.00 Pure hypercholesterolemia, unspecified; E03.9 Hypothyroidism, unspecified; I10 Essential (primary) hypertension; Z95.5 Presence of coronary angioplasty implant and graft; Z79.84 Long term (current) use of oral hypoglycemic drugs; Z88.6 Allergy status to analgesic agent
CPT/HCPCS: 20610; 36415; 73560; 80053; 85025; 85610; 85730; 86140; 93971

== ENCOUNTER → 2022-03-15 | Outpatient (CLI) | payer OTHER | END | disposition home or self-care (01) | LOC: RAH 09:41 | PROVIDERS: ATTEND Orthopaedic Surgery | DX: G89.29 Other chronic pain (principal) | CPT/HCPCS: 73700 ==

== ENCOUNTER → 2022-06-14 | Outpatient (CLI) | payer OTHER, MEDICARE ==
[~2022-06-14] MED LIST changes: +ATOR40TA69 PO; +CLOP75TA14 PO; -EMPA25TA PO; +IRON PO; +Isosorbide Mono 30MG Sr Tab PO; +LEVO175T64 PO; -LEVO175T9 PO; -MEMA5TAB42 PO; +METO25 PO; -METO50TA18 PO; -TICA90TA PO
[2022-06-14 12:35] LABS: BASOPHILS % (AUTO) 0.5 % (0.0-5.0); EOSINOPHILS % (AUTO) 1.2 % (0.0-8.0); HEMATOCRIT 38.9 % (36-48); LYMPHOCYTES % (AUTO) 23.5 % (21.0-51.0); MEAN CORPUSCULAR HEMOGLOBIN 27.3 pg (27.0-33.0); MEAN CORPUSCULAR HGB CONC 31.9 g/dL (32.0-36.0); MEAN CORPUSCULAR VOLUME 85.5 fL (79-99); MONOCYTES % (AUTO) 7.4 % (3.0-13.0); NEUTROPHILS % (AUTO) 66.9 % (40.0-77.0); PLATELET COUNT (AUTO) 283 K/uL (130-400); RED BLOOD CELL COUNT(AUTO) 4.55 MIL/uL (4.00-5.50); RED CELL DISTRIBUTION WIDTH 14.3 % (11.0-15.5); WHITE BLOOD COUNT (AUTO) 5.7 K/uL (4.8-10.8)
[2022-06-14 12:59] LABS: ALBUMIN 3.7 g/dL (3.5-5.0); CREATININE 0.7 mg/dL (0.5-1.5); POTASSIUM 4.7 mmol/L (3.5-5.1); THYROID STIMULATING HORMONE 3.88 uIU/mL (0.36-3.74); TOTAL PROTEIN, SERUM 7.8 g/dL (6.0-8.3)
[2022-06-14 13:20] LABS: B-TYPE NATRIURETIC PEPTIDE 65 pg/mL (0-100)
== END | disposition home or self-care (01) ==
LOC: LAB 08:27
PROVIDERS: ATTEND Internal Medicine Cardiovascular Disease
DX: I25.10 Atherosclerotic heart disease of native coronary artery without angina pectoris (principal); E78.5 Hyperlipidemia, unspecified
CPT/HCPCS: 36415; 80053; 80061; 83880; 84443; 85025

== ENCOUNTER → 2023-02-06 | Outpatient (CLI) | payer OTHER ==
[~2023-02-06] MED LIST changes: +AMOX500T2 PO; -ATOR40TA69 PO; -ATOR40TA71 PO; +CLOP-31 PO; -CLOP75TA14 PO; +DULA0.75 SQ; +EMPA25TA PO; +EZET10TA48 PO; -HYDR-4060 PO; -IRON PO; +ISOS30TA92 PO; +ISOS60TA77 PO; -Isosorbide Mono 30MG Sr Tab PO; +LISI5TAB21 PO; -LOSA50TA64 PO; +MEMA5TAB42 PO; -METF-446 PO; -METO25 PO; +METO25TA6 PO; +OMEP20CA12 PO
== END | disposition home or self-care (01) ==
LOC: LAB 12:40
PROVIDERS: ATTEND Internal Medicine Cardiovascular Disease
DX: R06.02 Shortness of breath (principal)
CPT/HCPCS: 36415; 85378

== ENCOUNTER 2023-02-07 11:32 | Emergency (ER) | payer OTHER ==
[~2023-02-07] VITALS: Ht 157.5 cm; Wt 67.1 kg
[2023-02-07 13:12] LABS: BASOPHILS % (AUTO) 0.5 % (0.0-5.0); EOSINOPHILS % (AUTO) 0.9 % (0.0-8.0); HEMATOCRIT 41.9 % (36-48); LYMPHOCYTES % (AUTO) 22.8 % (21.0-51.0); MEAN CORPUSCULAR HEMOGLOBIN 28.5 pg (27.0-33.0); MEAN CORPUSCULAR HGB CONC 33.4 g/dL (32.0-36.0); MEAN CORPUSCULAR VOLUME 85.3 fL (79-99); MONOCYTES % (AUTO) 9.1 % (3.0-13.0); NEUTROPHILS % (AUTO) 66.4 % (40.0-77.0); PLATELET COUNT (AUTO) 237 K/uL (130-400); RED BLOOD CELL COUNT(AUTO) 4.91 MIL/uL (4.00-5.50); RED CELL DISTRIBUTION WIDTH 12.8 % (11.0-15.5); WHITE BLOOD COUNT (AUTO) 6.5 K/uL (4.8-10.8)
[2023-02-07 13:21] LABS: CREATININE 0.6 mg/dL (0.5-1.5); POTASSIUM 4.4 mmol/L (3.5-5.1)
[2023-02-07 13:23] LABS: INR 0.94 (0.85-1.15); PROTHROMBIN TIME 10.9 SEC (9.6-11.6)
[2023-02-07 13:24] LABS: PARTIAL THROMBOPLASTIN TIME 30.2 SEC (26.3-35.5)
[2023-02-07] MEDS ORDERED: IOHEXOL 350 MG/ML 100ML INFUS..BTL IV ONE (15:49)
[2023-02-07 19:17] VITALS: BP 111/66
== END 2023-02-07 19:19 | disposition home or self-care (01) ==
LOC: EDH 11:32
DX: R79.89 Other specified abnormal findings of blood chemistry (principal); E78.00 Pure hypercholesterolemia, unspecified; I10 Essential (primary) hypertension; Z04.9 Encounter for examination and observation for unspecified reason; Z79.02 Long term (current) use of antithrombotics/antiplatelets; Z79.82 Long term (current) use of aspirin; Z79.84 Long term (current) use of oral hypoglycemic drugs; Z79.890 Hormone replacement therapy; Z79.899 Other long term (current) drug therapy; Z86.73 Personal history of transient ischemic attack (TIA), and cerebral infarction without residual deficits; Z88.6 Allergy status to analgesic agent; Z95.5 Presence of coronary angioplasty implant and graft
CPT/HCPCS: 99285; 71270; 71045; 84484; 80053; 85025; 85378; 85610; 85730; 36415; 93005; Q9967

== ENCOUNTER 2023-02-08 01:40 | Emergency (ER) | payer OTHER ==
[~2023-02-08] VITALS: Ht 175.3 cm; Wt 67.1 kg
[2023-02-08 02:44] VITALS: BP 135/78
== END 2023-02-08 03:38 | disposition home or self-care (01) ==
LOC: EDH 01:40
DX: S90.32XA Contusion of left foot, initial encounter (principal); E78.00 Pure hypercholesterolemia, unspecified; I10 Essential (primary) hypertension; M79.605 Pain in left leg; M79.604 Pain in right leg; Z79.02 Long term (current) use of antithrombotics/antiplatelets; Z79.82 Long term (current) use of aspirin; Z79.84 Long term (current) use of oral hypoglycemic drugs; Z79.890 Hormone replacement therapy; Z79.899 Other long term (current) drug therapy; Z86.73 Personal history of transient ischemic attack (TIA), and cerebral infarction without residual deficits; Z88.6 Allergy status to analgesic agent; Z95.5 Presence of coronary angioplasty implant and graft; X58.XXXA Exposure to other specified factors, initial encounter; Y93.89 Activity, other specified; Y92.89 Other specified places as the place of occurrence of the external cause; Y99.8 Other external cause status
CPT/HCPCS: 93970

== ENCOUNTER 2023-10-08 19:32 | Emergency (ER) | payer OTHER ==
[~2023-10-08] VITALS: Ht 154.9 cm; Wt 70.8 kg
[2023-10-08 20:35] LABS: BASOPHILS # (AUTO) 0.03 K/uL (0.00-0.20); BASOPHILS % (AUTO) 0.5 % (0.0-5.0); EOSINOPHILS # (AUTO) 0.07 K/uL (0.00-0.70); EOSINOPHILS % (AUTO) 1.3 % (0.0-8.0); IMMATURE GRANULOCYTE ABSOLUTE 0.02 K/uL (0-1); LYMPHOCYTES # (AUTO) 2.1 K/uL (1.0-4.8); LYMPHOCYTES % (AUTO) 37.7 % (21.0-51.0); MEAN CORPUSCULAR HGB CONC 33.4 g/dL (32.0-36.0); MEAN CORPUSCULAR VOLUME 86.7 fL (79-99); MONOCYTES # (AUTO) 0.5 K/uL (0.1-1.0); MONOCYTES % (AUTO) 8.6 % (3.0-13.0); NEUTROPHILS # (AUTO) 2.9 K/uL (1.8-7.7); NEUTROPHILS % (AUTO) 51.5 % (40.0-77.0); PLATELET COUNT (AUTO) 264 K/uL (130-400); RED BLOOD CELL COUNT(AUTO) 4.73 MIL/uL (4.00-5.50); RED CELL DISTRIBUTION WIDTH 13.3 % (11.0-15.5); WHITE BLOOD COUNT (AUTO) 5.6 K/uL (4.8-10.8)
[2023-10-08 20:45] LABS: CREATININE 0.9 mg/dL (0.5-1.5); POTASSIUM 4.4 mmol/L (3.5-5.1)
[2023-10-08 20:51] LABS: ALBUMIN 3.8 g/dL (3.5-5.0); BILIRUBIN,TOTAL 0.3 mg/dL (0.2-1.0); TOTAL PROTEIN, SERUM 7.6 g/dL (6.0-8.3)
[2023-10-08] MEDS: MECLIZINE HCL 25 MG TABLET PO ONE (21:47)
[2023-10-08] MEDS: ACETAMINOPHEN 500 MG TABLET PO ONE (21:47)
[2023-10-08] MEDS ORDERED: BUTA-271 PO (22:39)
[2023-10-08] MEDS ORDERED: MECL-302 PO (22:39)
[2023-10-08 23:00] VITALS: BP 139/70; PULSE 68; RESP 20; O2SAT 98
== END 2023-10-08 23:06 | disposition home or self-care (01) ==
LOC: EDH 19:32
DX: R07.89 Other chest pain (principal); I10 Essential (primary) hypertension; E78.00 Pure hypercholesterolemia, unspecified; E03.9 Hypothyroidism, unspecified; Z79.82 Long term (current) use of aspirin; Z79.84 Long term (current) use of oral hypoglycemic drugs; Z79.899 Other long term (current) drug therapy; Z98.890 Other specified postprocedural states
CPT/HCPCS: 36415; 70450; 71045; 80053; 84484; 85025; 93005

== ENCOUNTER → 2023-12-08 | Outpatient (CLI) | payer OTHER ==
[~2023-12-08] MED LIST changes: +BUTA-271 PO; +MECL-302 PO; +MEMA5TAB16 PO; -MEMA5TAB42 PO
== END | disposition home or self-care (01) ==
LOC: SHCH 10:05
PROVIDERS: ATTEND Internal Medicine Cardiovascular Disease
DX: I87.2 Venous insufficiency (chronic) (peripheral) (principal); I87.1 Compression of vein; I73.9 Peripheral vascular disease, unspecified
CPT/HCPCS: 93925; 93970

== ENCOUNTER 2024-03-25 09:54 | Emergency (ER) | payer OTHER ==
[~2024-03-25] VITALS: Ht 157.5 cm; Wt 72.6 kg
[2024-03-25 10:53] LABS: BASOPHILS # (AUTO) 0.04 K/uL (0.00-0.20); BASOPHILS % (AUTO) 0.7 % (0.0-5.0); EOSINOPHILS # (AUTO) 0.06 K/uL (0.00-0.70); EOSINOPHILS % (AUTO) 1.1 % (0.0-8.0); HEMATOCRIT 41.6 % (36-48); IMMATURE GRANULOCYTE ABSOLUTE 0.02 K/uL (0-1); LYMPHOCYTES # (AUTO) 1.4 K/uL (1.0-4.8); LYMPHOCYTES % (AUTO) 26.2 % (21.0-51.0); MEAN CORPUSCULAR HEMOGLOBIN 29.4 pg (27.0-33.0); MEAN CORPUSCULAR HGB CONC 33.7 g/dL (32.0-36.0); MEAN CORPUSCULAR VOLUME 87.2 fL (79-99); MONOCYTES # (AUTO) 0.4 K/uL (0.1-1.0); MONOCYTES % (AUTO) 7.4 % (3.0-13.0); NEUTROPHILS # (AUTO) 3.5 K/uL (1.8-7.7); NEUTROPHILS % (AUTO) 64.2 % (40.0-77.0); PLATELET COUNT (AUTO) 258 K/uL (130-400); RED BLOOD CELL COUNT(AUTO) 4.77 MIL/uL (4.00-5.50); RED CELL DISTRIBUTION WIDTH 12.9 % (11.0-15.5); WHITE BLOOD COUNT (AUTO) 5.4 K/uL (4.8-10.8)
[2024-03-25 11:09] LABS: CREATININE 0.8 mg/dL (0.5-1.0); POTASSIUM 4.6 mmol/L (3.5-5.1)
[2024-03-25 11:53] VITALS: O2SAT 98
[2024-03-25] MEDS: acetaMINOPHEN 500 MG TABLET PO ONE (12:00)
[2024-03-25] MEDS ORDERED: ONDA-243 PO (13:05)
[2024-03-25] MEDS: ONDANSETRON ODT 4MG TAB PO ONE (13:11)
[2024-03-25] MEDS: DEXAMETHASONE SOD PHOSPHATE 4 MG/ML 1ML VIAL IM ONE (13:11)
[2024-03-25 13:15] VITALS: BP 165/69; PULSE 70; RESP 18
== END 2024-03-25 13:28 | disposition home or self-care (01) ==
LOC: EDH 09:54
DX: I10 Essential (primary) hypertension (principal); M54.2 Cervicalgia; R73.9 Hyperglycemia, unspecified; R11.0 Nausea; M19.90 Unspecified osteoarthritis, unspecified site; E03.9 Hypothyroidism, unspecified; E78.00 Pure hypercholesterolemia, unspecified; F03.90 Unspecified dementia, unspecified severity, without behavioral disturbance, psychotic disturbance, mood disturbance, and anxiety; Z79.82 Long term (current) use of aspirin; Z79.84 Long term (current) use of oral hypoglycemic drugs; Z79.899 Other long term (current) drug therapy; Z79.890 Hormone replacement therapy; Z86.73 Personal history of transient ischemic attack (TIA), and cerebral infarction without residual deficits; Z98.890 Other specified postprocedural states; Z95.5 Presence of coronary angioplasty implant and graft; Z88.6 Allergy status to analgesic agent
CPT/HCPCS: 99284; 84484 ×2; 80048; 85025; 36415; 96372; 93005; J1100

== ENCOUNTER 2024-07-19 09:59 | Emergency (ER) | payer OTHER ==
[~2024-07-19] VITALS: Ht 157.5 cm; Wt 68.9 kg
[~2024-07-19 09:59] MED LIST changes: +ONDA-243 PO
[2024-07-19 10:47] LABS: HEMATOCRIT 40.2 % (36-48); MEAN CORPUSCULAR HGB CONC 32.8 g/dL (32.0-36.0); MEAN CORPUSCULAR VOLUME 88.4 fL (79-99); PLATELET COUNT (AUTO) 214 K/uL (130-400); RED BLOOD CELL COUNT(AUTO) 4.55 MIL/uL (4.00-5.50); RED CELL DISTRIBUTION WIDTH 13.4 % (11.0-15.5); WHITE BLOOD COUNT (AUTO) 7.6 K/uL (4.8-10.8)
[2024-07-19 11:00] LABS: CREATININE 0.8 mg/dL (0.5-1.0); POTASSIUM 4.6 mmol/L (3.5-5.1)
[2024-07-19 11:25] LABS: INR 0.98 (0.85-1.15); PROTHROMBIN TIME 10.6 SEC (9.6-11.6)
[2024-07-19 11:26] LABS: BAND NEUTROPHILS % (MANUAL) 2 % (0-2); BASOPHILS % (MANUAL) 1 % (0-2); EOSINOPHILS % (MANUAL) 3 % (1-6); LYMPHOCYTES % (MANUAL) 21 % (22-44); MAN.DIFF COMMENT-IMPRESSION MANUAL DIFFERENTIAL; MONOCYTES % (MANUAL) 3 % (2-9); PARTIAL THROMBOPLASTIN TIME 29.5 SEC (26.3-35.5); PLATELET MORPHOLOGY COMMENT ADEQUATE; SEGMENTED NEUTROPHILS % 70 % (40-70); TOTAL CELLS COUNTED 100; WBC MORPHOLOGY CONSISTENT W/DIFF
--- NOTE | 2024-07-19 11:42 | HMCIMG ---
Exam: NONCONTRAST CT BRAIN REASON: Headache. COMPARISON: 10/08/2023 TECHNIQUE: Images are obtained from vertex to the skull base. The exam was performed without IV contrast. FINDINGS: There is normal appearing brain parenchyma. There are no focal mass lesions. There is is no evidence of intracranial hemorrhage or acute stroke. Ventricles and sulci appear generous consistent with age or mild involutional change. Posterior fossa and brainstem structures are unremarkable. Paranasal sinuses and remaining extracranial soft tissues appear normal as well. IMPRESSION: 1. Generous ventricles and sulci consistent with age or mild involutional change. 2. No acute intracranial finding and no interval change. CT was performed with one or more following dose reduction techniques: automated exposure control, adjustment of the mA and kv according to patient's size, or use of a iterative reconstruction technique.
--- NOTE | 2024-07-19 11:55 | HMCIMG ---
CT CERVICAL SPINE W/O CONTRAST REASON: Pain, cervical tenderness COMPARISON: None TECHNIQUE: Images are obtained from skull base to the upper thoracic spine in the axial plane. Sagittal and coronal reconstruction images were then performed. FINDINGS: There are normal appearing vertebral bodies. Alignment is unremarkable. There is mild interspace narrowing C3-4, C5-6 and C6-7. Remaining interspaces appear preserved. There is annular bulging at C5-6. This results in moderate to marked spinal stenosis, AP diameter between 5 and 6 mm. There is mild narrowing at C3-4, AP diameter between 7 and 8 mm. Spinal canal appears otherwise preserved. There is no evidence of fracture or subluxation. Soft tissues appear normal as well. IMPRESSION: 1. Mild cervical degenerative changes. 2. Moderate to marked spinal stenosis C5-6 with mild spinal stenosis C3-4. CT was performed with one or more following dose reduction techniques: automated exposure control, adjustment of the mA and kv according to patient's size, or use of a iterative reconstruction technique.
[2024-07-19] MEDS: DiphenhydrAMINE HCL 50 MG/ML VIAL IV ONE (12:58)
[2024-07-19] MEDS: 0.9%NACL 1000ML 1,000 ML IV ONE (12:58)
[2024-07-19 13:22] LABS: APPEARANCE,URINE CLEAR (CLEAR); BACTERIA,URINE RARE /HPF (None Seen); BILIRUBIN,URINE NEGATIVE (NEGATIVE); COLOR,URINE LIGHT-YELLOW (YELLOW); GLUCOSE, URINE (UA) >=1000 mg/dL (NEGATIVE); KETONES,URINE NEGATIVE (NEGATIVE); LEUKOCYTE ESTERASE ,URINE NEGATIVE Leu/uL (NEGATIVE); MUCUS,URINE RARE LPF (None Seen); NITRATE,URINE NEGATIVE (NEGATIVE); OCCULT BLOOD,URINE NEGATIVE (NEGATIVE); PROTEIN,URINE NEGATIVE (NEGATIVE); RBC,URINE 0-1 /HPF (0-1); SQUAMOUS EPITHELIAL CELL,UR RARE /HPF (0-2); UROBILINOGEN,URINE 0.2 mg/dL (0.2-1.0); WBC,URINE 0-1 /HPF (0-1)
[2024-07-19] MEDS: PROCHLORPERAZINE 10MG/2ML INJ IV ONE (14:17)
--- NOTE | 2024-07-19 14:38 | ERN ---
General Chief Complaint: Headache Stated Complaint: HEADACHE X 3 DAYS Time Seen by MD: 10:11 Source: patient, family History of Present Illness Allergies: Coded Allergies: ibuprofen (Unverified Allergy, Unknown, 03/19/19) Home Meds Active Scripts Meclizine HCl (Meclizine HCl) 25 Mg Tablet, 25 MG PO TID for vertigo, #30 TAB 0 Refills Prov:DESHAUN FUNEZ MATERIALS HANDLING EQUIPMENT OPERATOR 03/25/24 Ondansetron (Ondansetron Odt) 4 Mg Tab.rapdis, 4 MG PO Q6HPRN PRN for nausea, #16 TAB 0 Refills Prov:DESHAUN FUNEZ MATERIALS HANDLING EQUIPMENT OPERATOR 03/25/24 Butalb/Acetaminophen/Caffeine (Esgic 50-325-40 mg Tablet) 50 Mg-325 Mg-40 Mg Tablet, 2 EACH PO Q4HPRN for HEADACHE, #30 TAB 2 tablets by mouth every 4 hours as needed headache, maximum 6 tablets in 24 hours. Prov:DESHAUN FUNEZ MATERIALS HANDLING EQUIPMENT OPERATOR 10/08/23 Meclizine HCl (Meclizine HCl) 25 Mg Tablet, 25 MG PO TID for DIZZINESS, #30 TAB 0 Refills Prov:DESHAUN FUNEZ MATERIALS HANDLING EQUIPMENT OPERATOR 10/08/23 Metoprolol Tartrate (Metoprolol Tartrate) 25 Mg Tablet, 12.5 MG PO BID, #15 TAB 0 Refills Prov:LILY FERNANDEZP 02/02/23 Lisinopril (Lisinopril) 5 Mg Tablet, 5 MG PO DAILY, #30 TAB 0 Refills Prov:LILY FERNANDEZP 02/02/23 Clopidogrel Bisulfate (Plavix) 75 Mg Tablet, 75 MG PO DAILY for 30 Days, #30 TAB 1 Refill Prov:ISRA REEVES Jr., MD 04/24/22 Aspirin (ASPIRIN 81 MG ECTAB) 81 Mg Ectab, 81 MG PO BID, #60 TAB.EC Prov:ISRA US MD 04/05/22 Reported Medications Memantine HCl (Memantine HCl) 5 Mg Tablet, 1 TAB PO DAILY 02/02/23 Ezetimibe (Ezetimibe) 10 Mg Tablet, 1 TAB PO DAILY 02/02/23 Omeprazole (Omeprazole) 20 Mg Capsule.dr, 1 CAP PO HS 02/02/23 Amoxicillin (Amoxicillin) 500 Mg Tablet, 1 TAB PO TID FOR 10 DAYS FOR DENTAL PAINS 02/02/23 Isosorbide Mononitrate (Isosorbide Mononitrate ER) 30 Mg Tab.er.24h, 30 MG PO HS, TAB 02/02/23 Isosorbide Mononitrate (Isosorbide Mononitrate ER) 60 Mg Tab.er.24h, 60 MG PO DAILY 02/02/23 Dulaglutide (Trulicity) 0.75 Mg/0.5 Ml Pen.injctr, 1.5 MG SQ QWEEK ON Mondays02/02/23 Empagliflozin (Jardiance) 25 Mg Tablet, 1 TAB PO DAILY 02/02/23 Levothyroxine Sodium (Euthyrox) 175 Mcg Tablet, 175 MCG PO DAILY, TAB 04/02/22 Gabapentin (Gabapentin) 100 Mg Capsule, 100 MG PO HS PRN for LEG PAIN, CAP 05/31/20 Past Medical History Past Medical History: CAD, CVA, Dementia, High Cholesterol, Heart Disease, Hypertension, Hypothyroid, NM, Stroke Medical History Other: THYROID Past Surgical History: Other Surgical History Other: L KNEE, CARDIAC STENT PLACEMENT Family History Family History: CAD, DM, HTN Social History Social History: Negative, Lives with family, Other Female( History) History: Not Applicable Results Laboratory and Microbiology Lab and Micro Result Laboratory Tests Test 07/19/24 10:40 07/19/24 11:47 White Blood Count 7.6 K/uL (4.8-10.8) Red Blood Count 4.55 MIL/uL (4.00-5.50) Hemoglobin 13.2 g/dL (12.0-16.0) Hematocrit 40.2 % (36-48) Mean Corpuscular Volume 88.4 fL (79-99) Mean Corpuscular Hemoglobin 29.0 pg (27.0-33.0) Mean Corpuscular Hemoglobin Concent 32.8 g/dL (32.0-36.0) Red Cell Distribution Width 13.4 % (11.0-15.5) Platelet Count 214 K/uL (130-400) Mean Platelet Volume 9.6 fL (7.5-10.5) Segmented Neutrophils % 70 % (40-70) Band Neutrophils % 2 % (0-2) Lymphocytes % (Manual) 21 % (22-44) L Monocytes % (Manual) 3 % (2-9) Eosinophils % (Manual) 3 % (1-6) Basophils % (Manual) 1 % (0-2) Nucleated Red Blood Cells 0.0 % (0.0-0.19) Differential Comment MANUAL DIFFERENTIAL White Cell Morphology Comment CONSISTENT W/DIFF Platelet Morphology Comment ADEQUATE Red Blood Cell Morphology ANISO 1+ Prothrombin Time 10.6 SEC (9.6-11.6) Prothromb Time International Ratio 0.98 (0.85-1.15) Activated Partial Thromboplast Time 29.5 SEC (26.3-35.5) Sodium Level 139 mmol/L (136-145) Potassium Level 4.6 mmol/L (3.5-5.1) Chloride Level 105 mmol/L (101-111) Carbon Dioxide Level 30 mmol/L (21-32) Blood Urea Nitrogen 17 mg/dL (7-18) Creatinine 0.8 mg/dL (0.5-1.0) Glomerular Filtration Rate Calc 77 mL/min (>90) Random Glucose 144 mg/dL (70-105) H Total Calcium 9.7 mg/dL (8.5-10.1) Urine Color LIGHT-YELLOW (YELLOW) Urine Appearance CLEAR (CLEAR) Urine pH 5.0 (5.0-8.0) Urine Specific [place] 1.018 (1.001-1.031) Urine Protein NEGATIVE mg/dL (NEGATIVE) Urine Glucose (UA) >=1000 mg/dL (NEGATIVE) H Urine Ketones NEGATIVE mg/dL (NEGATIVE) Urine Occult Blood NEGATIVE (NEGATIVE) Urine Nitrate NEGATIVE (NEGATIVE) Urine Bilirubin NEGATIVE mg/dL (NEGATIVE) Urine Urobilinogen 0.2 mg/dL (0.2-1.0) Urine Leukocyte Esterase NEGATIVE Mauri/uL Urine RBC 0-1 /HPF (0-1) Urine WBC 0-1 /HPF (0-1) Urine Squamous Epithelial Cells RARE /HPF (0-2) Urine Bacteria RARE /HPF (None Seen) ED Course Orders Procedure Category Date Status Time Cbc W Manual Diff LAB 07/19/24 Complete 10:30 Basic Metabolic Panel LAB 07/19/24 Complete 10:30 Urinalysis LAB 07/19/24 Complete W/Microscopic 10:30 Pt And Ptt LAB 07/19/24 Complete 10:30 Ct Head/Brain W/O CT 07/19/24 Resulted Contrast 11:09 Ct Cervical Spine W/O CT 07/19/24 Resulted Contrast 11:27 0.9%Nacl 1000ml (Ns PHA 07/19/24 Complete 1000ml) 12:00 Diphenhydramine Hcl PHA 07/19/24 Complete (Benadryl Inj) 12:00 Prochlorperazine PHA 07/19/24 Complete 10mg/2ml Inj 14:30 Current Medications Medications (Trade) Dose Ordered Sig/Lawanda Route PRN Reason Start Time Stop Time Status Last Admin Dose Admin Diphenhydramine HCl (BENAdryl INJ) 25 mg ONCE ONCE IV 07/19/24 12:00 07/19/24 12:01 DC 07/19/24 12:58 Prochlorperazine Edisylate (Compazine 10mg/ 2ml Inj) 10 mg ONCE ONCE IV 07/19/24 14:30 07/19/24 14:31 DC 07/19/24 14:17 Sodium Chloride 1,000 ml @ 0 mls/hr ONCE ONCE IV 07/19/24 12:00 07/19/24 12:01 DC 07/19/24 12:58 Vital Signs Date Time Temp Pulse Resp B/P (MAP) Pulse Ox O2 Delivery O2 Flow Rate FiO2 07/19/24 13:03 97.9 64 18 126/59 97 Room Air* 0 21 07/19/24 10:00 97.9 99 16 135/68 97 Room Air 0 DX & DISP Disposition: Discharge Departure Impression: Primary Impression: Headache Condition: Stable Additional Instructions: Discharge home. Rest. Follow up with primary care DrJeni in 24 hours. Return to the ER for any acute changes or worsening symptoms. If any medications were prescribed take as directed. Okay to continue home medications unless otherwise discussed during your visit in the emergency room today. Patient was also advised to follow-up with primary care physician in 1 to 2 days for continued monitoring. Referrals: CHITO MARTÍNEZ MD (PCP) I participated in the following activities of this patient's care: For this patient encounter, I reviewed the PA or MATERIALS HANDLING EQUIPMENT OPERATOR documentation, treatment plan, and medical decision making. I did not have [id number] time with this patient. I will sign as the reviewing DrJeni And agree with the treatment plan and disposition. ALEXANDREA BELTRAN Jul 19, 2024 14:38
[2024-07-19 15:27] VITALS: BP 132/60; PULSE 61; RESP 18; TEMP 97.9; O2SAT 99
== END 2024-07-19 15:38 | disposition home or self-care (01) ==
LOC: EDH 09:59
DX: R51.9 Headache, unspecified (principal); I25.10 Atherosclerotic heart disease of native coronary artery without angina pectoris; F03.90 Unspecified dementia, unspecified severity, without behavioral disturbance, psychotic disturbance, mood disturbance, and anxiety; E03.9 Hypothyroidism, unspecified; E78.00 Pure hypercholesterolemia, unspecified; I10 Essential (primary) hypertension; Z79.02 Long term (current) use of antithrombotics/antiplatelets; Z79.82 Long term (current) use of aspirin; Z79.84 Long term (current) use of oral hypoglycemic drugs; Z79.890 Hormone replacement therapy; Z79.899 Other long term (current) drug therapy; Z86.73 Personal history of transient ischemic attack (TIA), and cerebral infarction without residual deficits; Z88.6 Allergy status to analgesic agent; Z95.5 Presence of coronary angioplasty implant and graft
CPT/HCPCS: 99285; 70450; 96374; 96361; 96375; 80048; 85025; 85610; 85730; 81001; 36415; 72125; J1200; J7030; J0780

== ENCOUNTER 2024-08-04 22:05 | Emergency (ER) | payer OTHER ==
[~2024-08-04] VITALS: Ht 154.9 cm; Wt 69.4 kg
[2024-08-04 22:07] VITALS: TEMP 99
[2024-08-04] MEDS: methoCARBamol 500 MG TABLET PO SCH (22:40)
[2024-08-04] MEDS: GABAPENTIN 300 MG CAPSULE PO SCH (22:41)
[2024-08-04] MEDS: ketOROlac 30MG VIAL (30MG/ML) IM ONE (22:42)
[2024-08-04] MEDS: Solu-medROL 125MG VIAL IM ONE (22:42)
[2024-08-04] MEDS: LIDOCAINE 4% ADH..PATCH TP ONE (22:43)
--- NOTE | 2024-08-04 23:12 | NUR ---
PT AND FAMILY MEMBER EXPRESSED CONCERED ABOUT ADDITIONAL SCANS BEING DONE. ED MD MADE AWARE. PER MD NO SCANS ARE ORDERED AT THIS TIME.
[2024-08-04] MEDS ORDERED: METH-662 PO (23:28)
[2024-08-04] MEDS ORDERED: GABA-529 PO (23:28)
[2024-08-04] MEDS ORDERED: LIDOP TP (23:30)
[2024-08-04] MEDS ORDERED: METH2TAB PO (23:30)
--- NOTE | 2024-08-04 23:30 | ERN ---
ED Note History of Present Illness Stated Complaint: C/O BACK WITH NECK PAIN; HX OF HERNIATED DISC Chief Complaint: Back Pain-No Injury Time Seen by MD: 22:15 Allergies: Coded Allergies: ibuprofen (Unverified Allergy, Unknown, 03/19/19) Home Meds Active Scripts Meclizine HCl (Meclizine HCl) 25 Mg Tablet, 25 MG PO TID for vertigo, #30 TAB 0 Refills Prov:DESHAUN FUNEZ NP 03/25/24 Ondansetron (Ondansetron Odt) 4 Mg Tab.rapdis, 4 MG PO Q6HPRN PRN for nausea, #16 TAB 0 Refills Prov:DESHAUN FUNEZ [employer] 03/25/24 Butalb/Acetaminophen/Caffeine (Esgic 50-325-40 mg Tablet) 50 Mg-325 Mg-40 Mg Tablet, 2 EACH PO Q4HPRN for HEADACHE, #30 TAB 2 tablets by mouth every 4 hours as needed headache, maximum 6 tablets in 24 hours. Prov:DESHAUN FUNEZ [employer] 10/08/23 Meclizine HCl (Meclizine HCl) 25 Mg Tablet, 25 MG PO TID for DIZZINESS, #30 TAB 0 Refills Prov:DESHAUN FUNEZ [employer] 10/08/23 Metoprolol Tartrate (Metoprolol Tartrate) 25 Mg Tablet, 12.5 MG PO BID, #15 TAB 0 Refills Prov:LILY FERNANDEZP 02/02/23 Lisinopril (Lisinopril) 5 Mg Tablet, 5 MG PO DAILY, #30 TAB 0 Refills Prov:LILY FERNANDEZ AUTOMOTIVE PAINTER 02/02/23 Clopidogrel Bisulfate (Plavix) 75 Mg Tablet, 75 MG PO DAILY for 30 Days, #30 TAB 1 Refill Prov:ISRA REEVES Jr., MD 04/24/22 Aspirin (ASPIRIN 81 MG ECTAB) 81 Mg Ectab, 81 MG PO BID, #60 TAB.EC Prov:ISRA US MD 04/05/22 Reported Medications Memantine HCl (Memantine HCl) 5 Mg Tablet, 1 TAB PO DAILY 02/02/23 Ezetimibe (Ezetimibe) 10 Mg Tablet, 1 TAB PO DAILY 02/02/23 Omeprazole (Omeprazole) 20 Mg Capsule.dr, 1 CAP PO HS 02/02/23 Amoxicillin (Amoxicillin) 500 Mg Tablet, 1 TAB PO TID FOR 10 DAYS FOR DENTAL PAINS 02/02/23 Isosorbide Mononitrate (Isosorbide Mononitrate ER) 30 Mg Tab.er.24h, 30 MG PO HS, TAB 02/02/23 Isosorbide Mononitrate (Isosorbide Mononitrate ER) 60 Mg Tab.er.24h, 60 MG PO DAILY 02/02/23 Dulaglutide (Trulicity) 0.75 Mg/0.5 Ml Pen.injctr, 1.5 MG SQ QWEEK ON Mondays02/02/23 Empagliflozin (Jardiance) 25 Mg Tablet, 1 TAB PO DAILY 02/02/23 Levothyroxine Sodium (Euthyrox) 175 Mcg Tablet, 175 MCG PO DAILY, TAB 04/02/22 Gabapentin (Gabapentin) 100 Mg Capsule, 100 MG PO HS PRN for LEG PAIN, CAP 05/31/20 Past Medical History Dictation 73-year-old female with past medical history of high blood pressure, high cholesterol, diabetes presents with neck pain. Patient also has recent diagnosis cervical spinal stenosis. Patient denies focal neurological deficits, headaches, nausea, vomiting diaphoresis, syncope, presyncope, productive cough, chest pain, fevers Past Medical History: Diabetes-Type II, High Cholesterol, Heart Disease, Hypertension, Hypothyroid Additional Past Medical Hx: THYROID Surgical History: Hysterectomy, Other Surgical History Other: LT KNEE TOTAL REPLACEMENT Family History: CAD, DM, HTN Social History: Negative, Lives with family, Other History: Not Applicable Review of System Dictation See HPI Initial Vital Sign VS Vital Signs Date Time Temp Pulse Resp B/P (MAP) Pulse Ox O2 Delivery O2 Flow Rate FiO2 08/04/24 22:07 99.0 72 20 176/89 98 Room Air 08/04/24 22:22 0 21 Physical Exam Dictation Uncomfortable appearing, chronically ill-appearing, acutely weak appearing, 5/5 strength in extremities x4, tenderness to palpation of bilateral neck, no midline spinal tenderness ED Course ED Course Orders Procedure Category Date Status Time Lidocaine (Lidocaine PHA 08/04/24 Complete Patch 4%) 23:00 Ketorolac PHA 08/04/24 Complete Tromethamine 30mg/Ml 23:00 Gabapentin 300 Mg Cap PHA 08/04/24 In Process (Neurontin 300 Mg 23:00 Methocarbamol PHA 08/04/24 In Process (Methocarbamol) 23:00 Methylprednisolone PHA 08/04/24 Complete Succ 125mg (Solu-Medr 23:00 Current Medications Medications (Trade) Dose Ordered Sig/Lawanda Route PRN Reason Start Time Stop Time Status Last Admin Dose Admin Gabapentin (NEURontin 300 MG CAP) 300 mg ONCE PO 08/04/24 23:00 09/03/24 22:59 08/04/24 22:41 Ketorolac Tromethamine (toRADol) 30 mg ONCE ONCE IM 08/04/24 23:00 08/04/24 23:01 DC 08/04/24 22:42 Lidocaine (Lidocaine Patch 4%) 2 each ONCE ONCE TP 08/04/24 23:00 08/04/24 23:01 DC 08/04/24 22:43 Methocarbamol (methoCARBamol) 750 mg ONCE PO 08/04/24 23:00 09/03/24 22:59 08/04/24 22:40 Methylprednisolone Sodium Succinate (Solu-medROL 125MG) 125 mg ONCE ONCE IM 08/04/24 23:00 08/04/24 23:01 DC 08/04/24 22:42 Vital Signs Date Time Temp Pulse Resp B/P (MAP) Pulse Ox O2 Delivery O2 Flow Rate FiO2 08/04/24 22:22 75 22 185/89 98 Room Air* 0 21 08/04/24 22:07 99.0 72 20 176/89 98 Room Air Medical Decision Making [facility] ddx:Spinal compression versus cervical spinal stenosis versus meningitis Reviewed the patient's CT showing cervical spinal stenosis. Patient states symptoms have been getting worse. Patient has upcoming appointment neurosurgeon, but it is still distant. Patient states she is typically takes tramadol, but it has not been working today. Discussed risks and benefits and merits of performing additional testing with patient patient's family. At this time, patient's family are electing for conservative management of pain Control and then reassessment. Upon reassessment, patient is remains neurologically intact. Patient's pain is now controlled. Discussed ED workup patient patient's family. Indication encouraged patient's family to keep neurosurgery appointment. We will prescribe outpatient medicines. Return precautions given. Invited and answered all questions prior to discharge. DX & DISP Disposition: Discharge Departure Impression: Primary Impression: Cervical spinal stenosis Condition: Stable Scripts Lidocaine (Lidoderm Patch 5%) 5 % Patch 1 PATCH TP DAILY for 30 Days, #30 PATCH 0 Refills may wear up to 12 hours Prov: DANIELLA ROYAL DO 08/04/24 Methylprednisolone (Medrol) 2 Mg Tablet 2 TAB PO AD for 5 Days, #9 TAB 0 Refills Prov: GENNYDANIELLA Eleni SANCHEZ 08/04/24 Methocarbamol (Robaxin) 750 Mg Tab 750 MG PO Q6HPRN, #30 TAB Prov: DANIELLA ROYAL DO 08/04/24 Gabapentin (Gabapentin) 100 Mg Capsule 300 CAP PO TID for 30 Days, #90 CAP 0 Refills Prov: DANIELLA ROYAL DO 08/04/24 Additional Instructions: Please return to the emergency department immediately if pain becomes unbearable, if you have fevers, change in mental status, weakness in upper and lower extremities. He has follow up with neurosurgeon next available appointment. Please follow up neurologist next available appointment. Please follow up with primary care physician next available home. Referrals: CHITO MARTÍNEZ MD (PCP) Time of Disposition: 23:30 DANIELLA ROYAL DO Aug 04, 2024 23:30
[2024-08-05 00:13] VITALS: BP 154/76; PULSE 71; RESP 18; O2SAT 98
== END 2024-08-05 00:25 | disposition home or self-care (01) ==
LOC: EDH 22:05
DX: M48.02 Spinal stenosis, cervical region (principal); E03.9 Hypothyroidism, unspecified; E11.9 Type 2 diabetes mellitus without complications; E78.00 Pure hypercholesterolemia, unspecified; I10 Essential (primary) hypertension; Z79.02 Long term (current) use of antithrombotics/antiplatelets; Z79.82 Long term (current) use of aspirin; Z79.84 Long term (current) use of oral hypoglycemic drugs; Z79.890 Hormone replacement therapy; Z79.899 Other long term (current) drug therapy; Z88.6 Allergy status to analgesic agent; Z90.710 Acquired absence of both cervix and uterus; Z96.652 Presence of left artificial knee joint
CPT/HCPCS: 99284; 96372 ×2; J2919; J1885